=== PATIENT | male | born 2000 | race Asian ===

== ENCOUNTER 2019-09-25 18:15 | Emergency (ER) | payer OTHER, SELFPAY ==
[2019-09-25 18:20] VITALS: BP 134/75; PULSE 74; RESP 14; TEMP 36.9; O2SAT 98
[2019-09-25] MEDS: FLUORESCEIN 1 MG STRIP EYE-BOTH (18:52)
[2019-09-25] MEDS: PROPARACAINE 0.5% OPHTH SOL 1 DROPS EYE-LEFT (18:52)
--- NOTE | 2019-09-25 19:30 | ED.EYEPROB ---
HPI - Eye Problem <FERN Lund - Last Filed: 09/25/19 20:29> General Chief complaint: Eye Problems Stated complaint: SOMETHING IN LEFT EYE Time Seen by Provider: 09/25/19 18:15 Source: patient Mode of arrival: Ambulatory History of Present Illness HPI Narrative: 19-year-old male presenting to the emergency department complaining of a foreign body in his left eye since yesterday. He states he was at work cutting a a board when a piece of wood flew into his eye last night at 3:00 p.m.. He states he washed his eye out for over 15 minutes with eye wash solution. When he woke this morning he complained of increasing eye irritation, he states he is walking around and his eye closes due to irritation. He denies any discharge, vision loss, double vision, headache, nausea, vomiting, diarrhea, or any other concerns. Related Data Previous Rx's Medication Instructions Recorded ciprofloxacin HCl 2 drop EYE-LEFT .Q6 5 Days #5 ml 09/25/19 Allergies Allergy/AdvReac Type Severity Reaction Status Date / Time No Known Drug Allergies Allergy Verified 09/25/19 18:21 Review of Systems <FERN Lund - Last Filed: 09/25/19 20:29> Review of Systems Narrative: REVIEW OF SYSTEMS: GENERAL: Denies fever or chills. HENT: No head trauma, hearing loss, or sore throat. EYES: Complains of left eye irritation, see HPI. NECK/LYMPHATIC: No lymphadenopathy. CARDIOVASCULAR: No chest pain. RESPIRATORY: No cough or shortness of breath. INTEGUMENTARY: No rash, lesions, or pruritus. NEURO: No headaches or confusion. Patient History <FERN Lund - Last Filed: 09/25/19 20:29> Medical History No significant medical problems (Acute) Social History Smoking Status: Never smoker Smoking Status: Never smoker Exam <FERN Lund - Last Filed: 09/25/19 20:29> Initial Vital Signs Initial Vital Signs: Vital Signs Temperature 98.5 F 09/25/19 18:20 Pulse Rate 74 03/17/20 18:20 Respiratory Rate 14 09/25/19 18:20 Blood Pressure 134/75 09/25/19 18:20 Pulse Oximetry 98 09/25/19 18:20 PHYSICAL EXAMINATION: GENERAL: Well groomed, alert, and cooperative. Answers questions promptly and appropriately. Vital signs noted. HENT: Normocephalic, atraumatic. Hearing intact. Oral mucosa is pink and moist. Face features symmetrical. TMs with crisp light reflex EYES: PERRLA, EOMI without pain, injected left conjunctiva, no exudate. Right eye WNL. No foreign bodies, no abrasions noted with fluorescein examination. VA: R 20/20 L: 20/30, Both 20/20. CARDIOVASCULAR: Regular rate. RESPIRATORY: Normal respiratory rate, trachea midline, airway patent. No stridor, nasal flaring or accessory muscle use. MUSCULOSKELETAL: Normal gait and coordination. Equal tone and mass bilaterally. SKIN: Warm, dry, soft, appropriate color for ethnicity. NEURO: Alert and Oriented X 3. Good coordination. PSYCH: Appropriate affect and mood. <Alicia Rankin DO - Last Filed: 09/25/19 21:21> Initial Vital Signs Initial Vital Signs: Vital Signs Temperature 98.5 F 09/25/19 18:20 Pulse Rate 74 09/25/19 18:20 Respiratory Rate 14 09/25/19 18:20 Blood Pressure 134/75 09/25/19 18:20 Pulse Oximetry 98 09/25/19 18:20 Course <FERN Lund - Last Filed: 09/25/19 20:29> Orders Ordered: Discontinued Medications Fluorescein Sodium (Ful-Eliana) 1 mg EYE-BOTH NOW ONE Stop: 09/25/19 18:47 Last Admin: 09/25/19 18:52 Dose: 1 mg Documented by: ALEXYS Proparacaine HCl (Parcaine 0.5% Ophth Melina) 1 drops EYE-LEFT NOW ONE Stop: 09/25/19 18:42 Last Admin: 09/25/19 18:52 Dose: 1 drop Documented by: ALEXYS Reevaluation(s) Reevaluation #1: Patient staffed with Dr. Rankin. Vital Signs Vital signs: Vital Signs - 8 hr 09/25/19 18:20 Temperature 98.5 F Pulse Rate 74 Respiratory Rate 14 Blood Pressure 134/75 Pulse Oximetry 98 <Alicia Rankin DO - Last Filed: 09/25/19 21:21> Orders Ordered: Discontinued Medications Fluorescein Sodium (Ful-Eliana) 1 mg EYE-BOTH NOW ONE Stop: 09/25/19 18:47 Last Admin: 09/25/19 18:52 Dose: 1 mg Documented by: ALEXYS Proparacaine HCl (Parcaine 0.5% Ophth Melina) 1 drops EYE-LEFT NOW ONE Stop: 09/25/19 18:42 Last Admin: 09/25/19 18:52 Dose: 1 drop Documented by: ALEXYS Vital Signs Vital signs: Vital Signs - 8 hr 09/25/19 18:20 Temperature 98.5 F Pulse Rate 74 Respiratory Rate 14 Blood Pressure 134/75 Pulse Oximetry 98 MDM - Eye Problem <FERN Lund - Last Filed: 09/25/19 20:29> Medical Records Attestation: I reviewed the patient's medical records. Lab Data Attestation: I reviewed the patient's lab results. [facility] Narrative Medical decision making narrative: 19-year-old male presenting to the emergency department with complaints of foreign body in his eye. No foreign body noted on examination after extensively exploring under eyelids. However, due to symptoms, patient was treated for corneal abrasion. Differential includes corneal abrasion versus a retained foreign body He was encouraged to follow up with Ophthalmology tomorrow morning for further testing and evaluation. Patient was given strict ED return precautions. Patient agreed to plan of care verbalized understanding. He stated that he understood the importance of the referral and the importance for follow up as without proper care, eyesight custodial, patient agreed he would call the office tomorrow morning. <Alicia Rankin DO - Last Filed: 09/25/19 21:21> [facility] Narrative Medical decision making narrative: Case was discussed, no FB visualized or corneal abrasion. Patient started on abx eye gtt and referred to Ophthalmology in the morning here at . Patient asked to return if any worsening symptoms, decreased vision, pain, ect. Discharge Plan Departure Patient Disposition: Home Clinical Impression: Foreign body in eye Qualifiers: Encounter type: initial encounter Laterality: left Qualified Code(s): T15.92XA - Foreign body on external eye, part unspecified, left eye, initial encounter Discharge Date/Time: 09/25/19 19:19 Instructions: DI for Corneal Abrasion, DI for Foreign Body in the Eye Activity Restrictions/Additional Instructions: Thank you for entrusting me with your care today. As discussed, I did not find a foreign body in your at this time. It is possible that you may have scratched your eye. I have given you eyedrops, please use as directed. Please call the antenna installer tomorrow to schedule an appointment and have an evaluation and further eye exam. Return to the emergency department for any new or worsening symptoms such as vision loss, double vision, severe pain, or any other concerns. Prescriptions: New ciprofloxacin HCl 0.3 % drops 2 drop EYE-LEFT .Q6 5 Days Qty: 5 RF: 0 Referrals: Chaya Bridges MD [Non-Staff] - Stand Alone Forms: Work Release Note
== END 2019-09-25 19:19 | disposition home or self-care (01) ==
PROVIDERS: Emergency Provider Nurse Practitioner
DX: T15.92XA Foreign body on external eye, part unspecified, left eye, initial encounter (principal)
CPT/HCPCS: 99281